=== PATIENT | male | born 1940 | race African-American/Black ===

== ENCOUNTER 2022-03-08 20:49 | Emergency (ER) | payer SELFPAY ==
[2022-03-08 20:58] VITALS: BP 130/85; BMI 34.4
[2022-03-08] MEDS ORDERED: ACETAMINOPHEN 500 MG TABLET (FP) PO ONE (21:56)
[2022-03-08] MEDS ORDERED: IBUPROFEN 600 MG TABLET (FP) PO ONE ×2 (21:56→22:15)
[2022-03-08] MEDS ORDERED: ACETAMINOPHEN 500 MG TABLET (FP) ONE (22:15)
[2022-03-09 00:03] VITALS: PULSE 85; RESP 17; TEMP 101
== END 2022-03-09 | disposition home or self-care (01) ==
LOC: JER 20:49
DX: U07.1 COVID-19 (principal)
CPT/HCPCS: 0241U-QW; 71046-TC-FY; 99284-25